=== PATIENT | female | born 1965 | race Caucasian/White ===

== ENCOUNTER → 2020-05-23 | Outpatient (CLI) ==
[~2020-05-23] MED LIST: ADV250INH; ALBU8.5H; ASPI81TA26 PO; ATEN25TA; CYCL-707; ESTR2TAB2; FAMO20TA PO; FLUO20CA22; HYDR200T3; LOSA50TA88; OMEP-218; ROSU5TAB5
== END ==
LOC: M LABSMTC 09:48
PROVIDERS: ATTEND Anesthesiology
DX: Z01.812 Encounter for preprocedural laboratory examination (principal); Z20.822 Contact with and (suspected) exposure to COVID-19

== ENCOUNTER → 2020-05-26 | Outpatient (CLI) | payer BC ==
--- NOTE | 2020-05-27 19:26 | REP ---
INDICATION: DIAGNOSING LUNG NODULE R91.1. COMPARISON: None. TECHNIQUE: Whole-body on whole-body PET-CT scan from the skull base to the upper thighs with 15.81 mCi of F 18 FDG. FINDINGS: The patient reportedly had a lung nodule identified on an outside chest CT. The outside chest CT is not available for review. Neck and supraclavicular areas: There are no hypermetabolic foci. Chest: There is a spiculated nodule in the upper lobe of the right lung on the CT accompanying the PET scan. On the PET scan there is hypermetabolic uptake within this nodule with and standard uptake value of 21.5. There are no other hypermetabolic foci in the chest. Abdomen, pelvis and upper thighs: There are no hypermetabolic foci. Specifically there are no adrenal or hepatic foci. IMPRESSION: There is a markedly hypermetabolic nodule in the upper lobe of the right lung. There are no other hypermetabolic foci. <Electronically signed by Tavon Rivera > 05/27/20 [id number]
== END ==
LOC: M PLARAD 14:45
PROVIDERS: ATTEND Internal Medicine Pulmonary Disease
DX: R91.1 Solitary pulmonary nodule (principal)
CPT/HCPCS: 78815; A9552

== ENCOUNTER 2020-05-28 07:25 | Day surgery (SDC) | payer BC ==
[~2020-05-28] VITALS: Ht 154.9 cm; Wt 92.4 kg
[~2020-05-28 07:25] MED LIST changes: +CETACAINE SPRAY 5GM As Ordered ONE; +EPINEPHrine 1MG/10ML SYRINGE 1.5IN As Ordered ONE; +LIDOCAINE 1% SDV 30ML VIAL As Ordered ONE; +LIDOCAINE 2% 100MG/5ML SDV (FOR ANES.) As Ordered ONE; +LR 1,000 ML IV ONE; +METOCLOPRAMIDE INJ 10MG/2ML VIAL (J2765 PER 1) As Ordered ONE; +MIDAZOLAM INJ 2MG/2ML VIAL (J2250 PER 1MG) As Ordered ONE; +ONDANSETRON 4MG/2ML VIAL As Ordered ONE; +ROCURONIUM BROMIDE 50 MG/5 ML VIAL As Ordered ONE; +THROMBIN SOLN 5,000 UNITS VIAL As Ordered ONE; +UNRESOLVED CLARIFICATION ENTRY XX SCH; +fentaNYL 100 MCG/2 ML INJECTION (J3010) As Ordered ONE; +propofoL 200 MG/20 ML VIAL As Ordered ONE
[2020-05-28] MEDS ORDERED: LIDOCAINE 4% INJ 5ML AMP NEB ONE (07:40)
[2020-05-28] MEDS ORDERED: ALBUTEROL SULFATE 2.5 MG/0.5 ML INH NEB SOLN NEB ONE (07:40)
[2020-05-28] MEDS ORDERED: SUGAMMADEX SODIUM 500 MG/5 ML VIAL (BRIDION) As Ordered ONE (09:14)
[2020-05-28] MEDS ORDERED: ONDANSETRON 4MG/2ML VIAL IV PRN (10:10)
[2020-05-28] MEDS ORDERED: LR 1,000 ML IV SCH (10:10)
[2020-05-28] MEDS ORDERED: PERCOCET 5MG/325MG TAB PO PRN (10:10)
[2020-05-28] MEDS ORDERED: METOCLOPRAMIDE INJ 10MG/2ML VIAL (J2765 PER 1) IV PRN (10:10)
[2020-05-28] MEDS ORDERED: fentaNYL 100 MCG/2 ML INJECTION (J3010) IV PRN (10:10)
[2020-05-28] MEDS ORDERED: MEPERIDINE INJ 25 MG/ML VIAL (J2175) IV PRN (10:10)
--- NOTE | 2020-05-28 10:16 | REP ---
INDICATION: POST OP IN PACU/ BRONCHOSCOPY COMPARISON: None. TECHNIQUE: Portable AP view of the chest FINDINGS: The mediastinum and cardiac silhouette are within normal limits for portable technique. A vague opacity in the right upper lung zone is noted. No consolidation, effusion, or pneumothorax otherwise identified. Skeletal structures are intact. IMPRESSION: Vague 3 cm opacity in the right upper lung zone. No definite acute pneumothorax. Consider repeat examination on expiration if the patient is symptomatic. <Electronically signed by Miguel Kearney > 05/28/20 [id number]
--- NOTE | 2020-05-28 10:25 | RO ---
OPERATIVE NOTE DATE OF OPERATION: 05/28/2020 PREOPERATIVE DIAGNOSIS: Right upper lobe mass, abnormal chest CT. POSTOPERATIVE DIAGNOSIS: Right upper lobe mass, abnormal chest CT. PROCEDURE: Bronchoscopy with Bigelow robotic navigation and endobronchial ultrasound both radial and linear. PROCEDURALIST: Jayce Joseph D.O. CHEMIST WATER PURIFICATION: Sharri Albert MD ANESTHESIA: General; please refer to their records of details. FINDINGS: Smokers airway. SPECIMENS OBTAINED: 1. Transbronchial biopsies right upper lobe. 2. Right upper lobe cytology brush. 3. Fine needle aspiration (FNA) of the subcarinal node. COMPLICATIONS: None observed. ESTIMATED BLOOD LOSS: 10 mL. DRAINS: None. DESCRIPTION OF PROCEDURE: After informed consent was reviewed with the patient in the preoperative area, she was brought back to OR #8. The patient was intubated with an 8.5 endotracheal tube and the case was handed over to me. Time-out was performed with two patient identifiers, identify correct site and correct procedure. Name and date of were correlated with a premapped image on the happin! robot. Cetacaine spray was used to anesthetize the airway and provide lubrication for the 1T190 bronchoscope. The 1T190 bronchoscope was inserted into the airway. The trachea was midline. The aruna was fairly sharp. Right and mainstem bronchi had minimal amount of mucous that was suctioned. No endobronchial lesions there. LB1 through 10 was inspected without endobronchial lesions. There was minimal banding and pitting. RB1 through 10 again inspected without endobronchial lesion and again with banding and pitting. There was no splaying of the spurs on the left or right. After completion of the exam, the 1T190 bronchoscope was removed. Robotic bronchoscope was set up and all checks were confirmed. I easily navigated to the right upper lobe lesion in the posterior segment. After navigation, radial ultrasound was used to confirm the presence of circumferential lesion. A picture was taken of this. Biopsies were then performed. First forceps biopsies and then cytology brushing. Onsite cytology suggested adequate sampling. Possible nonsmall cell carcinoma. Sample sent to pathology and cytology. Hemostasis was assured and the robot was retracted. I then placed the linear endobronchial ultrasound into the airway. On viewing the subcarinal node from the left, there was no obtainable tissue. When viewing from the right, there was a small 5-mm node, which was sampled with minimal cells for cytology. I then advanced the scope to the right pretracheal node 4R. There was no enlarged node for sampling there. SVC was present without any thrombotic disease. There was no evidence of SVC compression. After hemostasis was ensured, the bronchoscope was removed. The case was handed over to anesthesia. Postprocedure chest x-ray is pending.
[2020-05-28 13:40] VITALS: BP 115/83
--- NOTE | 2020-05-28 14:15 | REP ---
INDICATION: BRONCHO/POST OP/ X-RAY @ 12:00PM WELL CALL WHEN READY. COMPARISON: Portable chest dated 05/28/2020 at 9:55 a.m.. Whole-body PET scan dated 05/26/2020. TECHNIQUE: AP portable chest with the patient upright at 12:07 p.m. FINDINGS: There is again a 5th vague round opacity in the right upper lobe similar to the comparison plain film study earlier today. There are no other plain film studies or chest CT studies for correlation. However, the vague opacity roughly corresponds to hypermetabolic right upper lobe lung nodule on the comparison PET scan. There is no pneumothorax or pleural fluid collection. Lung ellis are otherwise clear. Cardiac size normal. Fariba, mediastinum, and skeletal structures are unremarkable. IMPRESSION: Vague opacity in the right upper lobe roughly corresponding to the hypermetabolic lung nodule on the comparison PET scan. There are no other chest imaging studies for correlation. Otherwise, negative portable chest. <Electronically signed by Tavon Rivera > 05/28/20 [id number]
== END 2020-05-28 13:50 | disposition home or self-care (01) ==
LOC: M SDC 07:25
PROVIDERS: ATTEND Internal Medicine Pulmonary Disease
DX: C34.11 Malignant neoplasm of upper lobe, right bronchus or lung (principal); J44.9 Chronic obstructive pulmonary disease, unspecified; I10 Essential (primary) hypertension; Z88.0 Allergy status to penicillin; K21.9 Gastro-esophageal reflux disease without esophagitis
CPT/HCPCS: 31623; 31628; 31652; 71045; 76000; 88104; 88173; 88305; 88341; 88342; C1887; J2250; J2405; J2765; J3010; S2900

== ENCOUNTER → 2020-06-17 | Outpatient (CLI) | payer BC ==
[~2020-06-17] MED LIST changes: -CETACAINE SPRAY 5GM As Ordered ONE; -EPINEPHrine 1MG/10ML SYRINGE 1.5IN As Ordered ONE; -LIDOCAINE 1% SDV 30ML VIAL As Ordered ONE; -LIDOCAINE 2% 100MG/5ML SDV (FOR ANES.) As Ordered ONE; -LR 1,000 ML IV ONE; -METOCLOPRAMIDE INJ 10MG/2ML VIAL (J2765 PER 1) As Ordered ONE; -MIDAZOLAM INJ 2MG/2ML VIAL (J2250 PER 1MG) As Ordered ONE; -ONDANSETRON 4MG/2ML VIAL As Ordered ONE; -ROCURONIUM BROMIDE 50 MG/5 ML VIAL As Ordered ONE; -THROMBIN SOLN 5,000 UNITS VIAL As Ordered ONE; -UNRESOLVED CLARIFICATION ENTRY XX SCH; -fentaNYL 100 MCG/2 ML INJECTION (J3010) As Ordered ONE; -propofoL 200 MG/20 ML VIAL As Ordered ONE
--- NOTE | 2020-06-17 14:05 | RADONC.CN ---
Radiation Oncology Hx/Consult Radiation Oncology Consult Date of Service: Jun 17, 2020 Pt Identifier Reena Foster is a 54 year old female 30+ pack year former smoker (quit attempt ongoing) with a [id number] stage IA3 NSCLC of the RUL. She is seen today for consideration of SBRT as an alternative to lobectomy. Diagnosis/Treatment History Oncologic History Patient presented to [facility] ED with chest pain on 05/05/20. Cardiac workup negative. CT chest done during workup revealed a 2.6 cm spiculated RUL lesion. She was referred to Dr. Joseph. PET-CT on 05/26/20 showed avidity in the lesion, no mediastinal avidity. EBUS biopsy on 05/28/20 showed SCC PDL1 high (90%). She was evaluated by Dr. Mo who discussed lobectomy. She wished to hear about the RT options as well prior to deciding. PFTs 05/15/20 FVC 2.42 78% pred FEV1 1.94 79% pred FEV1/FVC 101% pred DLCO 100% pred Interval History Here with her . Feels well overall. No CP. Has some cough, productive of clear sputum. Not bothersome. No significant SOB or [place]. Appetite good, weight stable. She reports she has not smoked in several weeks. Past Medical History: CAD GERD HPL HTN Depression RA Past Surgical History: Hysterecomy SBO (2/2 adhesions) Family History: Mother HN cancer Social History: 35 pack year smoking history quit attempt ongoing Drinks 2 alcoholic beverages 1-2 days per week Allergies / Meds Allergies: Coded Allergies: amoxicillin (Verified Allergy, Intermediate, itching, 05/28/20) Home Meds Reported Medications Albuterol Sulfate (Albuterol Sulfate Hfa) 8.5 Gm Hfa.aer.ad, PRN 05/21/20 Salmeterol/Fluticasone (Advair 250-50 Diskus) 1 Each Blst.w.dev, BID 05/21/20 Estradiol (Estradiol) 2 Mg Tablet, QHS 05/21/20 Rosuvastatin Calcium (Rosuvastatin Calcium) 5 Mg Tablet, QHS 05/21/20 Hydroxychloroquine Sulfate (Hydroxychloroquine Sulfate) 200 Mg Tablet, 400 MG QHS 05/21/20 Losartan Potassium (Losartan Potassium) 50 Mg Tablet, QHS 05/21/20 Cyclobenzaprine HCl (Cyclobenzaprine HCl) 10 Mg Tablet, QHS 05/21/20 Fluoxetine Hcl (Fluoxetine HCl) 20 Mg Capsule, QHS 05/21/20 Aspirin (Aspirin EC) 81 Mg Tablet.dr, 81 MG PO QHS, #30 TAB 05/21/20 Atenolol (Atenolol) 25 Mg Tablet, 50 MG QHS 05/21/20 Omeprazole (Omeprazole) 20 Mg Capsule.dr, QHS 05/21/20 Famotidine (Famotidine) 20 Mg Tablet, 20 MG PO QHS, TAB 05/21/20 Review of Systems General: Reports: Normal Appetite Constitutional: Denies: Chills, Fever, Night Sweats Eyes: Denies: Pain, Vision change HEENT: Denies: Head Aches, Dysphagia, Sore Throat Skin: Denies: Rash, Lesions, Bruising Pulmonary: Denies: Dyspnea, Cough Cardiovascular: Denies: Chest Pain, Palpitations, Edema Gastrointestinal: Denies: Nausea, Vomiting, Abdominal Pain, Diarrhea Genitourinary: Denies: Dysuria, Frequency, Incontinence Hematologic: Denies: Bruising, Petecchia, Enlarged Lymph Nodes Musculoskeletal: Denies: Neck pain, Back pain Neurological: Denies: Weakness, Numbness, Incoordination Psych: Reports: Mood Normal; Denies: Memory Issues, Thoughts of Self Harm Vital Signs Ht 62" Wt 211 lbs BMI 39 T 97.6 P 87 RR 16 BP 152/106 O2 96% Pain 0 Fatigue 0 General Exam: Positive: Alert, Cooperative, No Acute Distress Eye Exam: Positive: PERRLA, EOMI ENT EXAM: Positive: Mucous membr. moist/pink, Pharynx Normal Neck Exam: Negative: Thyromegaly, Lymphadenopathy Chest Exam: Positive: Normal air movement; Negative: Rales, Rhonchi, Wheezing Heart Exam: Positive: Rate Normal, Regular Rhythm Abdomen Exam: Positive: Soft; Negative: Tenderness, Mass Extremity Exam: Negative: Edema, Tenderness Skin Exam: Positive: Nl turgor and temperature; Negative: Rash Neuro Exam: Positive: Normal Gait, Normal Speech, Cranial Nerves 3-12 NL Psych Exam: Positive: Mental status NL, Mood NL, Memory Intact Diagnostic and Laboratory Diagnostic Review Radiologic images, relevant labs and pathology reports were personally reviewed and discussed with Ms. Foster. Assessment and Plan Impression Ms. Foster is a 54 year old female 30+ pack year former smoker (quit attempt ongoing) with a [id number] stage IA3 NSCLC of the RUL. She is seen today for consideration of SBRT as an alternative to lobectomy. Stage RUL NSCLC [id number] stage IA3 Performance Status ECOG 0 Plan We had an extensive discussion with Ms. Foster regarding the diagnosis at hand and available therapeutic options. She has an early stage lung cancer incidentally discovered during workup for chest pain. She is young, with excellent PFTs and performance status. I therefore recommended to her that she pursue lobectomy and LN sampling for management of this early lung cancer. This is for several reasons; improved long-term survival probability compared to sub-lobar resection and SBRT (alth ough no [id number] trials of the latter are resulted), as well as the fact that a non-trivial percentage of patients are pathologically upstaged, which shepherds them on to adjuvant systemic therapy, which in turn improves outcomes. The alternative radiation option would be SBRT 60 Gy in 5 fractions, which given the location of the lesion would be a well tolerated treatment. She was appreciative of the honest recommendation and is willing to proceed with surgery. I will communicate this to Dr. Mo so that he may proceed accordingly. After discussing the risks, benefits and alternatives to radiation therapy, Ms. Foster was amenable to pursuing lobectomy. All questions were answered to the patient's satisfaction. We instructed the patient that if there were any questions,concerns or changes in clinical status in the interim to contact us. Recommendations Lobectomy Follow up with ct PRN Billing Statement Total time of [31] minutes was spent preparing for the visit [1], obtaining HPI [3], examining the patient [3], reviewing diagnostic tests [4], discussing management options [10], coordinating care [3], and writing this note [7]. ONDINA HUSSEIN MD Jun 17, 2020 14:05
== END ==
LOC: M ONCR 12:51
PROVIDERS: ATTEND General Practice
DX: C34.11 Malignant neoplasm of upper lobe, right bronchus or lung (principal)

== ENCOUNTER → 2021-01-27 | Outpatient (CLI) | payer BC ==
[~2021-01-27] MED LIST changes: -ESTR2TAB2; +ESTR2TAB3
--- NOTE | 2021-01-27 16:40 | REP ---
INDICATION: CA OF UPPER LOBE, RIGHT BRONCHUS OR LUNG COMPARISON: Chest CT dated 05/05/2020 (performed prior to resection) TECHNIQUE: Axial noncontrast images from the thoracic inlet to the upper abdomen with coronal and sagittal reformations. This CT examination was performed using the following dose reduction techniques: Automated exposure control, adjustment of mA and/or kv according to the patient's size, and use of iterative reconstruction technique. FINDINGS: Patient is noted to be status post right upper lobe resection. Mild chronic emphysematous changes along with minimal primarily right-sided scarring identified. No acute consolidation, suspicious nodule or mass lesion is appreciated to suggest recurrence or metastatic disease. No effusion. No pneumothorax. Tracheobronchial tree is relatively patent and normal. Mediastinum demonstrates surgical changes at the right hilum. No significant adenopathy identified. Thoracic aorta and heart/pericardium are normal. Limited upper abdomen demonstrates diffuse hepatosteatosis along with normal bilateral adrenal glands. IMPRESSION: 1. Postsurgical changes involving the right hemithorax consistent with prior right upper lobectomy for mass resection. 2. No evidence for recurrence/metastatic disease. 3. No evidence for acute mediastinal or pleuroparenchymal process. <Electronically signed by Miguel Kearney > 01/27/21 [id number]
== END ==
LOC: M PLAIMG 09:58
PROVIDERS: ATTEND Internal Medicine Pulmonary Disease
DX: C34.11 Malignant neoplasm of upper lobe, right bronchus or lung (principal); Z90.2 Acquired absence of lung [part of]

== ENCOUNTER → 2021-07-27 | Outpatient (CLI) | payer BC ==
[~2021-07-27] MED LIST changes: +LOSA50TA28; -LOSA50TA88; +OMEP-173; -OMEP-218
== END ==
LOC: M PLAIMG 09:39
PROVIDERS: ATTEND Internal Medicine Pulmonary Disease
DX: C34.11 Malignant neoplasm of upper lobe, right bronchus or lung (principal); K76.0 Fatty (change of) liver, not elsewhere classified; J98.4 Other disorders of lung; D73.89 Other diseases of spleen

== ENCOUNTER → 2022-02-03 | Outpatient (CLI) | payer BC | LOC: M PLAIMG 12:58 | PROVIDERS: ATTEND Internal Medicine Pulmonary Disease | DX: C34.11 Malignant neoplasm of upper lobe, right bronchus or lung (principal); Z90.2 Acquired absence of lung [part of] ==

== ENCOUNTER → 2022-07-12 | Outpatient (CLI) | payer BC | LOC: M RAD 10:30 | PROVIDERS: ATTEND Internal Medicine Pulmonary Disease | DX: C34.11 Malignant neoplasm of upper lobe, right bronchus or lung (principal); Z90.2 Acquired absence of lung [part of] ==

== ENCOUNTER → 2022-10-27 | Outpatient (CLI) | payer BC ==
[~2022-10-27] MED LIST changes: -HYDR200T3; +HYDR200T46
== END ==
LOC: M RAD 07:40
PROVIDERS: ATTEND Internal Medicine Pulmonary Disease
DX: C34.11 Malignant neoplasm of upper lobe, right bronchus or lung (principal)

== ENCOUNTER → 2023-02-22 | Outpatient (REF) | payer BC | LOC: M SFHCDERM 17:31 | PROVIDERS: ATTEND Physician Assistant | DX: L82.0 Inflamed seborrheic keratosis (principal) ==

== ENCOUNTER → 2023-06-09 | Outpatient (CLI) | payer BC | LOC: M PLAIMG 10:41 | PROVIDERS: ATTEND Internal Medicine Pulmonary Disease | DX: C34.11 Malignant neoplasm of upper lobe, right bronchus or lung (principal); Z90.2 Acquired absence of lung [part of] ==

== ENCOUNTER → 2024-01-02 | Outpatient (CLI) | payer OTHER ==
[~2024-01-02] MED LIST changes: +FLUO-365; -FLUO20CA22; +ROSU5TAB49; -ROSU5TAB5
== END ==
LOC: M PLAIMG 09:51
PROVIDERS: ATTEND Internal Medicine Pulmonary Disease
DX: R07.82 Intercostal pain (principal); Z90.2 Acquired absence of lung [part of]; Z85.118 Personal history of other malignant neoplasm of bronchus and lung